=== PATIENT | male | born 2000 | race Two or more races ===

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

== ENCOUNTER 2023-06-13 18:45 | Emergency (ER) | payer BC ==
[~2023-06-13] VITALS: Ht 175.3 cm; Wt 69.9 kg
[2023-06-13 18:55] VITALS: BP 115/74; TEMP 98.6; O2SAT 100
== END 2023-06-13 19:19 | disposition home or self-care (01) ==
LOC: ER 18:45
DX: S90.211A Contusion of right great toe with damage to nail, initial encounter (principal); W20.8XXA Other cause of strike by thrown, projected or falling object, initial encounter; Y93.55 Activity, bike riding; Y92.89 Other specified places as the place of occurrence of the external cause; Y99.8 Other external cause status